=== PATIENT | female | born 1955 | race Two or more races ===

== ENCOUNTER 2023-08-28 18:09 | Emergency (ER) | payer OTHER, MEDICAID ==
[~2023-08-28] VITALS: Ht 157.5 cm; Wt 66.7 kg
[2023-08-28] MEDS: MECLIZINE HCL 25 MG TAB PO ONE (19:06)
[2023-08-28 19:20] LABS: Basophils # (auto) 0 10 ^3/uL (0-0.2); Basophils % (auto) 0.2 % (0.0-2.0); Eosinophils # (auto) 0 10 ^3/uL (0-0.8); Eosinophils % (auto) 0.2 % (0.0-7.0); Hematocrit 41.5 % (36.0-46.0); Hemoglobin 13.7 g/dL (12.2-16.2); Lymphocytes # (auto) 0.8 10 ^3/uL (0.4-5.4); Lymphocytes % (auto) 8.8 % (10.0-50.0); Mean Corpuscular Hemoglobin 29.5 pg (28.0-32.0); Mean Corpuscular Volume 89.5 fL (80.0-100.0); Monocytes # (auto) 0.3 10 ^3/uL (0-1.3); Monocytes % (auto) 3.3 % (0.0-12.0); Neutrophils # (auto) 7.6 10 ^3/uL (1.6-8.6); Neutrophils % (auto) 87.5 % (37.0-80.0); Red Blood Cells 4.64 10^6/uL (4.0-5.20); Red Cell Distribution Width 14.5 % (11.8-14.3); White Blood Cell 8.7 10^3/uL (4.4-10.8)
[2023-08-28 19:35] LABS: INR 0.99 (0.9-1.15); Partial Thromboplastin Time 29.9 SEC (24.5-34.5); Prothrombin Time 10.4 sec (9.3-11.8)
[2023-08-28 19:56] LABS: Alanine Aminotransferase 23 U/L (7-40); Alkaline Phosphatase 79 U/L (46-116); Anion Gap 6 (5-15); BUN/Creatinine Ratio 16.3 (10.0-20.0); Blood Urea Nitrogen 14 mg/dL (9-23); Calcium 9.5 mg/dL (8.5-10.1); Carbon Dioxide 25 mmol/L (20-30); Chloride 105 mmol/L (98-107); Glucose 124 mg/dL (74-106); Potassium 4.3 mmol/L (3.5-5.1); Sodium 136 mmol/L (136-145)
[2023-08-28 19:57] LABS: Albumin 4.5 g/dL (3.2-4.8); Aspartate Aminotransferase 30 U/L (13-40); Bilirubin, Total 0.6 mg/dL (0.2-1.0); Total Protein 7.3 g/dL (5.7-8.2)
[2023-08-28 20:00] VITALS: PULSE 73; RESP 18; O2SAT 98
[2023-08-28] MEDS: levETIRAcetam 1000 mg/100ml 100 ML IV ONE (20:41)
[2023-08-28 20:52] LABS: Urine Bacteria NONE SEEN /hpf (None Seen); Urine Blood Negative /uL (Negative); Urine Clarity Clear (Clear); Urine Color Yellow (Yellow); Urine Protein, UAD Negative (Negative); Urine Specific Gravity 1.009 (1.001-1.035); Urine Urobilinogen Normal (Negative); Urine WBC 4 /hpf (0 - 5)
[2023-08-28] MEDS: LABETALOL HCL 5 MG/ML 4ML SYRINGE IV ONE (20:55)
[2023-08-28 21:42] VITALS: BP 113/62; PULSE 66; RESP 17; TEMP 98.6; O2SAT 98
== END 2023-08-28 21:52 | disposition short-term general hospital (02) ==
LOC: ER 18:09
DX: I61.8 Other nontraumatic intracerebral hemorrhage (principal); R42 Dizziness and giddiness; Z88.0 Allergy status to penicillin; Z86.73 Personal history of transient ischemic attack (TIA), and cerebral infarction without residual deficits
CPT/HCPCS: 36415; 70450; 71045; 80053; 81001; 82962; 83880; 84484; 85025; 85379; 85610; 85730; 93005; 96365; 96375; 99285; J1953; J3490; J8597

== ENCOUNTER 2024-07-29 01:34 | Emergency (ER) | payer OTHER, MEDICAID ==
[~2024-07-29] VITALS: Ht 157.5 cm; Wt 59.9 kg
[2024-07-29 02:01] VITALS: BP 150/88; PULSE 65; RESP 18; O2SAT 98
[2024-07-29] MEDS: TETRACAINE HCL 0.5% OPTH(EYE) SOLN 4ML EACHEYE ONE (04:43)
[2024-07-29] MEDS: FLUORESCEIN SOD OPTH TEST STRIP EACHEYE ONE (04:43)
[2024-07-29] MEDS ORDERED: MOXI0.5S3 OP (04:58)
--- NOTE | 2024-07-29 04:59 | ED.PDOC ---
Eye-HPI Chief Complaint: Eye Problem Time Seen by MD: 02:15 Primary Care Provider: GOLD Reviewed Notes: Nurses Notes, Medications, Allergies Allergies: Coded Allergies: Penicillins (Verified Allergy, Unknown, 08/28/23) Information Source: Patient Mode of Arrival: Ambulatory Past Medical History PAST MEDICAL HISTORY: TIA Surgical History: Denies all surgeries [employer] WORKER History: No Pertinent [employer] WORKER History Family History Family History: Unknown Social History Smoker: Non-Smoker Alcohol: Denies ETOH Use Drugs: Denies Drug Use Was a procedure done? Was a procedure done?: Yes Sedation Informed consent obtained: Yes EENT DIFF Eye: Corneal Ulceration, Foreign Body-Conjunctiva, Foreign Body-Corneal, Foreign Body-Intraocular, Foreign Body-Lid X-Ray, Labs, Meds, VS Vital Signs Date Time Temp Pulse Resp B/P (MAP) Pulse Ox O2 Delivery O2 Flow Rate FiO2 07/29/24 02:01 97.5 65 18 150/88 (108) 98 Current Medications Medications (Trade) Dose Ordered Sig/Durga Route Start Time Stop Time Status Last Admin Fluorescein Sodium (Ful-Josseline) 1 mg ONCE ONCE EACHEYE 07/29/24 04:45 07/29/24 04:46 DC 07/29/24 04:43 Tetracaine HCl (Tetracaine 0.5% Opth Soln) 1 drop ONCE ONCE EACHEYE 07/29/24 04:45 07/29/24 04:46 DC 07/29/24 04:43 Time of 1ST Reevaluation: 04:56 Reevaluation 1ST: Improved Patient Education/Counseling: Diagnosis, Treatment, Prognosis, Need For Follow Up Family Education/Counseling: Diagnosis, Treatment, Prognosis, Need For Follow Up Departure 1 Departure Time of Disposition: 04:56 Impression: Primary Impression: Foreign body sensation, bilateral eyes Disposition: 01 HOME / SELF CARE / HOMELESS Condition: Stable e-Prescriptions Moxifloxacin Hydrochloride (Moxifloxacin HCl) 0.5 % Hope 1 DROP OP TID for 5 Days, #1 ML Instill 1 drop in both eyes 3 times daily x5 days Prov: BIRDIE ANSARI 07/29/24 Discharged With: Spouse Critical Care Note Critical Care Time?: No Stability Stability form required: BIRDIE Erwin Jul 29, 2024 04:59
== END 2024-07-29 05:04 | disposition home or self-care (01) ==
LOC: ER 01:34
DX: H57.89 Other specified disorders of eye and adnexa (principal); Z86.73 Personal history of transient ischemic attack (TIA), and cerebral infarction without residual deficits; Z88.0 Allergy status to penicillin